=== PATIENT | female | born 1950 ===

== ENCOUNTER 2021-07-04 06:38 | Emergency (ER) | payer OTHER ==
[2021-07-04 08:17] LABS: Urine Blood Trace-intact (Negative); Urine Glucose Negative (Negative); Urine Protein 1+ (Negative); Urine Specific Gravity 1.025 (1.005-1.030); Urine pH 5.5 (5.0-7.0)
[2021-07-04] MEDS ORDERED: ONDANSETRON 4 MG/2 ML VIAL ONE (08:23)
[2021-07-04] MEDS ORDERED: DIAZEPAM 5 MG TABLET ONE (08:28)
[2021-07-04] MEDS ORDERED: MORPHINE 2 MG/ML SYR ONE (08:28)
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
[2021-07-04 08:55] LABS: Hematocrit 40.5 % (36.0-45.0); MPV 7.9 fL (7.6-11.3); RBC Red Blood Cell Count 4.84 M/uL (3.86-4.86)
--- NOTE | 2021-07-04 09:01 | RAD REPORT ---
EXAM DESCRIPTION: RAD - Chest Single View - 07/04/2021 8:46 am CLINICAL HISTORY: COUGH COMPARISON: No comparisons FINDINGS: Lines: None. Lungs: No evidence of edema or pneumonia. Pleural: No significant pleural effusions or pneumothorax. Cardiac: The heart size is within normal limits. Bones: No acute fractures. Other: IMPRESSION: No acute cardiopulmonary disease.
[2021-07-04 09:04] LABS: Absolute Lymphocytes (CBC) 2.4 K/uL (0.7-4.9); Lymphocytes % 18.2 % (15.3-44.8)
[2021-07-04 09:09] LABS: Potassium 3.7 mmol/L (3.5-5.1)
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
[2021-07-04 10:00] VITALS: BP 139/87; TEMP 98.7; O2SAT 100
== END 2021-07-04 09:37 | disposition home or self-care (01) ==
LOC: ER 06:38
DX: S16.1XXA Strain of muscle, fascia and tendon at neck level, initial encounter (principal); S29.011A Strain of muscle and tendon of front wall of thorax, initial encounter; S29.012A Strain of muscle and tendon of back wall of thorax, initial encounter; K20.90 Esophagitis, unspecified without bleeding; V49.50XA Passenger injured in collision with unspecified motor vehicles in traffic accident, initial encounter; E11.9 Type 2 diabetes mellitus without complications; I10 Essential (primary) hypertension
CPT/HCPCS: 85025; 80048; 36415; 86900; 86850; 82565; 86901; 81003; 83690; 70450; 72125; 71260; 74177; 71045; 96375; 96374; 99284; Q9967; J2270; J2405

== ENCOUNTER 2021-12-14 13:19 | Emergency (ER) | payer SELFPAY ==
--- NOTE | 2021-12-14 15:02 | RAD REPORT ---
EXAM DESCRIPTION: RAD - Chest Single View - 12/14/2021 2:21 pm CLINICAL HISTORY: Cough COMPARISON: Portable 07/04/2021 TECHNIQUE: AP portable chest image was obtained 12/14/2021 2:21 pm . FINDINGS: Lungs are clear. Heart and vasculature are normal. No measurable pleural effusion and no p neumothorax. No acute bony abnormality seen. No acute aortic findings suspected. IMPRESSION: No acute cardiopulmonary process. No significant change from comparison study.
--- NOTE | 2021-12-14 18:11 | ER ---
Nurse's Notes [facility] Name: Dylon Abernathy Age: 71 yrs Sex: Female : 1950 Arrival Date: 12/14/2021 Time: 13:22 Bed 11 Private MD: Diagnosis: Coronavirus infection, unspecified Presentation: 12/14 15:15 Chief complaint: Patient states: dry cough, headache, SOB, sore throat that began aa5 Tuesday. Exposed to COVID-19 recently. 15:15 Coronavirus screen: cough unrelated to allergies, sore throat. Ebola Screen: Patient aa5 denies travel to an Ebola-affected area in the 21 days before illness onset. Initial Sepsis Screen: Does the patient meet any 2 criteria? No. Patient's initial sepsis screen is negative. Does the patient have a suspected source of infection? No. Patient's initial sepsis screen is negative. Risk Assessment: Do you want to hurt yourself or someone else? Patient reports no desire to harm self or others. Onset of symptoms was November 2021. 15:15 Acuity: NEEL 3 aa5 15:15 Method Of Arrival: Ambulatory aa5 Historical: - Allergies: 15:17 No Known Allergies; aa5 - PMHx: 15:17 diabetes mellitus; Hypertensive disorder; Hypercholesterolemia; aa5 - Immunization history:: Adult Immunizations unknown. - Social history:: Smoking status: Patient denies any tobacco usage or history of. Vital Signs: 15:15 BP 147 / 98; Pulse 76; Resp 18 S; Temp 98.6(O); Pulse Ox 100% on R/A; aa5 ED Course: 13:22 Patient arrived in ED. mr 14:08 Magen Booth NP is PHCP. pm1 14:08 Piyush Hall MD is Attending Physician. pm1 14:22 XRAY Chest (1 view) In Process Unspecified. EDMS 15:17 Arm band placed on. aa5 15:19 Triage completed. aa5 17:33 Elisa Ng, RN is Primary Nurse. iw Administered Medications: 15:36 Drug: Tussionex Pennkinetic ER (chlorpheniramine-hydrocodone) Suspension 5 ml Route: PO;aa5 Outcome: 18:10 Discharge ordered by MD. pm1 18:34 Patient left the ED. iw Signatures: Dispatcher [employer] VALENTÍNFL Lacie Aguila Elisa Ng, RN JUNE iw Rosa Martin RN RN aa5 Magen Booth, RESIDENT PHYSICIAN IN RADIOLOGY RESIDENT PHYSICIAN IN RADIOLOGY pm1 Corrections: (The following items were deleted from the chart) 15:19 15:15 Chief complaint: Patient states: cough,SOB, sore throat that began Tuesday. aa5 Exposed to COVID-19 recently. aa5
--- NOTE | 2021-12-14 18:11 | EDPHYS ---
Physician Documentation [facility] Name: Dylon Abernathy Age: 71 yrs Sex: Female : 1950 Arrival Date: 12/14/2021 Time: 13:22 Bed 11 Private MD: ED Physician Piyush Hall HPI: 12/14 15:23 This 71 yrs old Female presents to ER via Ambulatory with complaints of Breathing pm1 Difficulty, Cough. 15:23 The patient or guardian reports cough, with no sputum. Onset: The symptoms/episode pm1 began/occurred 2 day(s) ago. Severity of symptoms: in the emergency department the symptoms are unchanged. Modifying factors: the symptoms are aggravated by Cough. Associated signs and symptoms: Pertinent positives: sore throat, shortness of breath only with coughing fits, Pertinent negatives: chest pain, fever. The patient has not experienced similar symptoms in the past. The patient has not recently seen a physician. Patient reports exposure to covid. Historical: - Allergies: 15:17 No Known Allergies; aa5 - PMHx: 15:17 diabetes mellitus; Hypertensive disorder; Hypercholesterolemia; aa5 - Immunization history:: Adult Immunizations unknown. - Social history:: Smoking status: Patient denies any tobacco usage or history of. ROS: 15:23 Constitutional: Negative for fever, chills, and weight loss, Cardiovascular: Negative pm1 for chest pain, palpitations, and edema. 15:23 Abdomen/GI: Negative for abdominal pain, nausea, vomiting, diarrhea, and constipation, Back: Negative for injury and pain. 15:23 MS/Extremity: Negative for injury and deformity, Skin: Negative for injury, rash, and discoloration, Neuro: Negative for headache, weakness, numbness, tingling, and seizure. 15:23 ENT: Positive for sore throat, Negative for ear pain. 15:23 Respiratory: Positive for cough, with no reported sputum, Negative for sputum production. 15:23 All other systems are negative. Exam: 15:23 Constitutional: This is a well developed, well nourished patient who is awake, alert, pm1 and in no acute distress. Head/Face: Normocephalic, atraumatic. 15:23 Back: No spinal tenderness. No costovertebral tenderness. Full range of motion. Skin: Warm, dry with normal turgor. Normal color with no rashes, no lesions, and no evidence of cellulitis. MS/ Extremity: Pulses equal, no cyanosis. Neurovascular intact. Full, normal range of motion. 15:23 Eyes: Exam is negative for acute changes, Periorbital structures: appear normal, Pupils: no acute changes, Conjunctiva: no acute changes, no injection. 15:23 ENT: Exam is negative for acute changes, Mouth: no acute changes, Lips: normal, moist, Oral mucosa: normal, pink and intact, moist. 15:23 Cardiovascular: Exam negative for acute changes, Rate: normal, Rhythm: regular, Pulses: no pulse deficits are appreciated, Heart sounds: normal, normal S1and S2. 15:23 Respiratory: Exam negative for acute changes, respiratory distress, shortness of breath, Breath sounds: are clear throughout. 15:23 Abdomen/GI: Exam negative for acute changes, Inspection: abdomen appears normal, Palpation: abdomen is soft and non-tender, in all quadrants. 15:23 Neuro: Exam negative for acute changes, Orientation: is normal, Mentation: is normal, Motor: is normal, moves all fours. Vital Signs: 15:15 BP 147 / 98; Pulse 76; Resp 18 S; Temp 98.6(O); Pulse Ox 100% on R/A; aa5 MDM: 15:17 Patient medically screened. pm1 17:20 Data reviewed: vital signs. Data interpreted: Pulse oximetry: on room air is 100 %. pm1 Interpretation: normal. 18:09 Counseling: I had a detailed discussion with the patient and/or guardian regarding: the pm1 historical points, exam findings, and any diagnostic results supporting the discharge/admit diagnosis, lab results, radiology results, the need for outpatient follow up, a family practitioner, to return to the emergency department if symptoms worsen or persist or if there are any questions or concerns that arise at home. 12/14 15:22 Order name: COVID-19 SARS RT PCR (Document "Date of Onset" if Symptomatic); Complete aa5 Time: 18:08 12/14 15:22 Order name: Flu; Complete Time: 16:41 pm1 12/14 14:07 Order name: XRAY Chest (1 view); Complete Time: 15:06 rn 12/14 15:22 Order name: Strep; Complete Time: 16:41 aa5 12/14 16:09 Order name: Throat Culture EDMS Administered Medications: 15:36 Drug: Tussionex Pennkinetic ER (chlorpheniramine-hydrocodone) Suspension 5 ml Route: PO;aa5 Disposition: 18:55 Co-signature as Attending Physician, Piyush Hall MD. rn Disposition Summary: 12/14/21 18:10 Discharge Ordered Location: Home pm1 Problem: new pm1 Symptoms: have improved pm1 Condition: Stable pm1 Diagnosis - Coronavirus infection, unspecified pm1 Followup: pm1 - With: Emergency Department - When: As needed - Reason: Worsening of condition Followup: pm1 - With: Private Physician - When: 2 - 3 days - Reason: Recheck today's complaints, Continuance of care, Re-evaluation by your physician Discharge Instructions: - Discharge Summary Sheet pm1 - COVID-19 pm1 - COVID-19 Frequently Asked Questions pm1 - 10 Things You Can Do to Manage Your COVID-19 Symptoms at Home - [facility] pm1 - COVID-19: Quarantine vs. Isolation - [facility] pm1 Forms: - Medication Reconciliation Form pm1 - Thank You Letter pm1 - Antibiotic Education pm1 - Prescription Opioid Use pm1 Prescriptions: - Albuterol Sulfate 2.5 mg /3 mL (0.083 %) Inhalation Solution for Nebulization - inhale 1 unit by NEBULIZATION route every 8 hours As needed; 1 box; Refills: 0, pm1 Product Selection Permitted - Guaifenesin AC 10-100 mg/5 mL Oral Liquid - take 10 milliliters by ORAL route every 4 hours As needed; 240 milliliter; pm1 Refills: 0, Product Selection Permitted Signatures: Dispatcher [employer] Piyush Gallagher MD MD rn Calderon, Audri, RN RN aa5 Magen Booth NP OVERSIZE LOAD PILOT ESCORT pm1
[2021-12-14 19:15] VITALS: BP 147/98; TEMP 98.6; O2SAT 100
== END 2021-12-14 18:34 | disposition home or self-care (01) ==
LOC: ER 13:19
DX: U07.1 COVID-19 (principal); E11.9 Type 2 diabetes mellitus without complications; I10 Essential (primary) hypertension
CPT/HCPCS: 71045; 87070; 87081; 87804; 99283; U0003